=== PATIENT | female | born 1960 | race Caucasian/White ===

== ENCOUNTER 2016-07-18 23:42 | Emergency (ER) | payer OTHER ==
[~2016-07-18] VITALS: Ht 167.6 cm; Wt 76.0 kg
[2016-07-18 23:47] VITALS: Ht 167.6 cm; Wt 76.0 kg
--- NOTE | 2016-07-19 00:35 | ERA ---
ER Documentation Chief Complaint Date/Time DATE: 07/19/16 TIME: 00:34 Chief Complaint RUQ abd pain x 3 days HPI The patient is a 56-year-old female, presenting to the ER because of intermittent right upper quadrant abdominal pain for 3 days, was seen at the clinic 3 days ago and discharged with pain medication. He has similar symptoms previously, denies fever, chills, neck pain, chest pain. He complains of nausea and vomited 3 mostly mucus, denies diarrhea, constipation, dysuria. She does not smoke or drink Past medical history: None Past surgical history: Tubal ligation, hemorrhoidectomy ROS All systems reviewed and are negative except as per history of present illness. Medications Home Meds Active Scripts Tramadol HCl (Tramadol HCl) 50 Mg Tablet, 50 MG PO Q6H Y for PAIN, #10 TAB Prov:JAYDEN SHAW MD 07/19/16 Allergies Allergies: Coded Allergies: tioconazole (Verified Allergy, Mild, 01/09/14) Tetracyclines (Verified Allergy, Unknown, 01/09/14) codeine (Verified Allergy, Unknown, 01/09/14) hydrocodone (Verified Allergy, Unknown, 01/09/14) VOMIT PMhx/Soc History of Surgery: No Anesthesia Reaction: No Hx Neurological Disorder: No Hx Respiratory Disorders: No Hx Cardiac Disorders: No Hx Psychiatric Problems: No Hx Miscellaneous Medical Probl: No Hx Alcohol Use: No Hx Substance Use: No Hx Tobacco Use: No Physical Exam Vitals Vital Signs Date Time Temp Pulse Resp B/P Pulse Ox O2 Delivery O2 Flow Rate FiO2 07/19/16 01:41 98.1 64 20 111/72 98 Room Air 07/18/16 23:47 98.3 68 20 128/87 98 Physical Exam Const: No acute distress. Head: Atraumatic. Eyes: Normal Conjunctiva. ENT: Normal External Ears, Nose and Mouth. Neck: Full range of motion. No meningismus. Resp: Clear to auscultation bilaterally. Cardio: Regular rate and rhythm. Abd: Soft, non distended, normal bowel sounds, moderate right upper quadrant tenderness, no right lower quadrant, epigastric, CVA tenderness Skin: No petechiae or rashes. Back: No midline or flank tenderness. Ext: No cyanosis, or edema. Neur: Awake and alert. No focal deficit Psych: Normal Mood and Affect. Result Diagram: 07/19/160 07/19/16 0040 Results 24 hrs Laboratory Tests Test 07/19/16 00:40 07/19/16 01:02 White Blood Count 8.210^3/ul Red Blood Count 4.6010^6/ul Hemoglobin 14.6g/dl Hematocrit 42.9% Mean Corpuscular Volume 93.3fl Mean Corpuscular Hemoglobin 31.7pg Mean Corpuscular Hemoglobin Concent 34.0g/dl Red Cell Distribution Width 13.5% Platelet Count 12556^3/UL Mean Platelet Volume 11.8fl Neutrophils % 58.7% Lymphocytes % 33.9% Monocytes % 5.3% Eosinophils % 1.8% Basophils % 0.1% Nucleated Red Blood Cells % 0.0/100WBC Neutrophils # 4.810^3/ul Lymphocytes # 2.810^3/ul Monocytes # 0.410^3/ul Eosinophils # 0.210^3/ul Basophils # 0.010^3/ul Nucleated Red Blood Cells # 0.010^3/ul Sodium Level 145mmol/L Potassium Level 3.7mmol/L Chloride Level 109mmol/L Carbon Dioxide Level 25mmol/L Anion Gap 15 Blood Urea Nitrogen 22mg/dl Creatinine 0.85mg/dl Glucose Level 100mg/dl Calcium Level 10.4mg/dl Total Bilirubin 0.2mg/dl Direct Bilirubin 0.00mg/dl Indirect Bilirubin 0.2mg/dl Aspartate Amino Transf (AST/SGOT) 17IU/L Alanine Aminotransferase (ALT/SGPT) 33IU/L Alkaline Phosphatase 101IU/L Total Protein 7.5g/dl Albumin 4.8g/dl Globulin 2.70g/dl Albumin/Globulin Ratio 1.77 Lipase 253U/L Bedside Urine pH (LAB) 7.0 Bedside Urine Protein (LAB) Negative Bedside Urine Glucose (UA) Negative Bedside Urine Ketones (LAB) Negative Bedside Urine Blood Trace-intact Bedside Urine Nitrite (LAB) Negative Bedside Urine Leukocyte Esterase (L 1+ Current Medications Medications (Trade) Dose Ordered Sig/Marlys Route PRN Reason Start Time Stop Time Status Last Admin Dose Admin Sodium Chloride (NS) 1,000 ml @ 1,000 mls/hr Q1H STAT IV 07/19/16 00:38 07/19/16 01:37 DC 07/19/16 00:46 Morphine Sulfate (morphine) 4 mg ONCE STAT IV 07/19/16 00:38 07/19/16 00:40 DC 07/19/16 00:46 Ondansetron HCl (Zofran Inj) 4 mg ONCE STAT IV 07/19/16 00:38 07/19/16 00:40 DC 07/19/16 00:46 Hydromorphone HCl (Dilaudid) 1 mg ONCE STAT IV 07/19/16 01:22 07/19/16 01:23 DC 07/19/16 01:27 Ondansetron HCl (Zofran Inj) 4 mg ONCE STAT IV 07/19/16 01:22 07/19/16 01:23 DC 07/19/16 01:26 Procedures/[place] [id number] Radiology Main Line: [phone] DIAGNOSTIC IMAGING REPORT Patient: LES FIELDS : 1960 Age: 56 Sex: F MR #: [id number] DOS: 07/19/16 0038 Ordering MD: JAYDEN SHAW MD Location: E/R Room/Bed: PROCEDURE: ULTRASOUND LIMITED ABDOMEN CLINICAL INDICATION: 56-year-old female with abdominal pain. TECHNIQUE: Multiple sonographic of the right upper quadrant of the abdomen were obtained. The images were reviewed on a PACS workstation. COMPARISON: None. FINDINGS: The proximal inferior vena cava and aorta are unremarkable. The pancreas is partially visualized and is otherwise without focal abnormal echogenicity. The liver displays diffuse increased echogenicity consistent with fatty infiltration. The liver measures 21.1 cm in length. No evidence of intrahepatic biliary ductal dilatation is seen. The portal and hepatic veins are unremarkable. The gallbladder contains multiple small dependent shadowing stones. The gallbladder wall is mildly prominent measuring 3.2 mm. No pericholecystic fluid is seen. The common bile duct measures 3.7 mm and is not dilated. The right kidney displays normal echogenicity. The right kidney measures 10.7 cm in length. No caliectasis or hydronephrosis is seen. No free fluid is seen. IMPRESSION: 1. Hepatomegaly with diffuse fatty infiltration. 2. Cholelithiasis with mildly prominent gallbladder wall. .Javid Johnson MD, MD Date Time Electronically viewed and signed by .Javid Johnson MD, MD on 07/19/2016 02:14 .M/ CC: JAYDEN SHAW MD MEDICAL MAKING DECISION: The patient is a 56-year-old female, presenting with acute biliary colic, acute cystitis. She was treated with morphine 4 mg IV, Dilaudid 1 mg IV for pain, Zofran 4 mg IV 2 for nausea and 1 L normal saline for clinical dehydration with good response. The differential diagnoses considered include but are not limited to cholelithiasis, cholecystitis, cystitis, pancreatitis, hepatitis, gastritis, peptic ulcer disease, gastric ulcer, appendicitis, diverticulitis, cholangitis, choledocholithiasis, partial small bowel obstruction. Departure Diagnosis: Primary Impression: Biliary colic Additional Impression: Cystitis Condition: Good Comments She was discharged with Ultram and Bactrim DS I discussed the findings with the patient. I advised the patient to follow-up with the on-call general surgeon Dr. Burnham in about 1-2 days, sooner if needed and return if any concern. The patient's blood pressure was elevated (>120/80) but appears stable without evidence of hypertension emergency or urgency. The patient was counseled about the risks of hypertension and urged to pursue outpatient monitoring and therapy within a week with their primary care physician. JAYDEN SHAW MD Jul 19, 2016 00:34
[2016-07-19] MEDS ORDERED: morphine 4 MG/ML VIAL IV STA (00:38)
[2016-07-19] MEDS ORDERED: SOD CHLORIDE 0.9% 1,000 ML IV STA (00:38)
[2016-07-19] MEDS ORDERED: ONDANSETRON 4 MG INJ IV STA ×2 (00:38→01:22)
[2016-07-19 00:59] LABS: URINE BLOOD (Dip) POC Trace-intact (NEGATIVE)
[2016-07-19 01:01] LABS: ADD SCAN DIFF NO
[2016-07-19 01:04] LABS: BASOPHILS % 0.1 % (0.0-2.0); EOSINOPHILS # 0.2 10^3/ul (0.0-0.5); EOSINOPHILS % 1.8 % (0.0-7.0); HEMATOCRIT 42.9 % (37.0-47.0); HEMOGLOBIN 14.6 g/dl (12.0-16.0); LYMPHOCYTES # 2.8 10^3/ul (0.8-2.9); LYMPHOCYTES % 33.9 % (15.0-51.0); MEAN CORPUSCULAR HEMOGLOBIN 31.7 pg (29.0-33.0); MEAN CORPUSCULAR VOLUME 93.3 fl (82.0-101.0); MEAN PLATELET VOLUME 11.8 fl (7.4-10.4); MONOCYTE # 0.4 10^3/ul (0.3-0.9); MONOCYTES % 5.3 % (0.0-11.0); NEUTROPHIL # 4.8 10^3/ul (1.6-7.5); NEUTROPHILS % 58.7 % (39.0-77.0); PLATELET COUNT 215 10^3/UL (140-415); RED CELL DISTRIBUTION WIDTH 13.5 % (11.5-14.5); WHITE BLOOD COUNT 8.2 10^3/ul (4.8-10.8)
[2016-07-19] MEDS ORDERED: HYDROmorphONE 1 MG/ML SYG IV STA (01:22)
[2016-07-19 01:32] LABS: ALBUMIN 4.8 g/dl (3.3-4.9); ALBUMIN/GLOBULIN RATIO 1.77; BILIRUBIN,INDIRECT 0.2 mg/dl (0-1.1); BILIRUBIN,TOTAL 0.2 mg/dl (0.2-1.3); CALCIUM 10.4 mg/dl (8.4-10.2); CREATININE 0.85 mg/dl (0.44-1.00); POTASSIUM 3.7 mmol/L (3.5-5.1); TOTAL PROTEIN 7.5 g/dl (6.1-8.1)
[2016-07-19 01:41] VITALS: BP 111/72; PULSE 64; RESP 20; TEMP 98.1
--- NOTE | 2016-07-19 02:14 | RADRPT ---
PROCEDURE: ULTRASOUND LIMITED ABDOMEN CLINICAL INDICATION: 56-year-old female with abdominal pain. TECHNIQUE: Multiple sonographic of the right upper quadrant of the abdomen were obtained. The imag es were reviewed on a PACS workstation. COMPARISON: None. FINDINGS: The proximal inferior vena cava and aorta are unremarkable. The pancreas is partially visualized and is otherwise without focal abnormal echogenicity. The liver displays diffuse increased echogenicity consistent with fatty infiltration. The liver sebastian ures 21.1 cm in length. No evidence of intrahepatic biliary ductal dilatation is seen. The portal a nd hepatic veins are unremarkable. The gallbladder contains multiple small dependent shadowing stones. The gallbladder wall is mildly prominent measuring 3.2 mm. No pericholecystic fluid is seen. The common bile duct measures 3.7 mm a nd is not dilated. The right kidney displays normal echogenicity. The right kidney measures 10.7 cm in length. No calie ctasis or hydronephrosis is seen. No free fluid is seen. IMPRESSION: 1. Hepatomegaly with diffuse fatty infiltration. 2. Cholelithiasis with mildly prominent gallbladder wall. .Javid Johnson MD, MD Date Time Electronically viewed and signed by .Javid Johnson MD, on 07/19/2016 02:14 .M/
[2016-07-19] MEDS ORDERED: TRAM50TA2 PO (03:32)
== END 2016-07-19 03:51 | disposition home or self-care (01) ==
LOC: E/R 23:42
DX: K80.50 Calculus of bile duct without cholangitis or cholecystitis without obstruction (principal); N30.90 Cystitis, unspecified without hematuria; R11.2 Nausea with vomiting, unspecified
CPT/HCPCS: 36415; 76705; 80053; 81003; 83690; 85025; 96374; 96375; 96376; J1170; J2270; J2405; J7030; Z7502

== ENCOUNTER 2017-02-05 17:01 | Emergency (ER) | END 2017-02-05 19:06 | disposition home or self-care (01) ==

== ENCOUNTER 2017-09-05 12:03 | Emergency (ER) | END 2017-09-05 14:29 | disposition home or self-care (01) ==

== ENCOUNTER 2018-07-12 14:35 | Emergency (ER) | payer MEDICAID, OTHER ==
[~2018-07-12] VITALS: Wt 80.0 kg
[~2018-07-12 14:35] MED LIST: CETI10CA PO; DICY10CA40 PO; GUAI120S25 PO; IBUP-1542 PO; NITR-58 PO; TRAM50TA2 PO
[2018-07-12 14:36] VITALS: BP 127/80; PULSE 74; RESP 18
--- NOTE | 2018-07-12 15:21 | ERD ---
ER Documentation Chief Complaint Chief Complaint LEFT EYE REDNESS HPI 58-year-old female presenting with sub-conjunctive hemorrhage to the left eye. Patient denies any trauma patient states that the symptoms first began 3 weeks ago and has been just getting worse. Patient states she feels a pulsation that started today but denies any blurry vision or headaches. Patient denies any floaters or loss of vision in the eye. Patient has not taken any medication for this issue and has not seen any provider for this issue. Patient denies taking any aspirin warfarin nightly Coumadin or any blood thinning medication. Patient denies taking any medications at all and states her only past medical history is tubal ligation, hemorrhoid removal, and gallbladder removal. ROS All systems reviewed and are negative except as per history of present illness. Medications Home Meds Active Scripts Polymyxin B Sulfate-TMP* (Polymyxin B-TMP Eye Drops*) 10 Ml Drops, 1 DROP LEFT EYE QID for 7 Days, EA Prov:MARICRUZ DENG PA-C 07/12/18 Acetaminophen* (Tylenol*) 325 Mg Tablet, 1 TAB PO Q6 PRN for PAIN AND OR ELEVATED TEMP, #20 TAB Prov:MARICRUZ DENG PA-C 07/12/18 Ibuprofen* (Ibuprofen*) 600 Mg Tablet, 600 MG PO Q6H PRN for PRN, #30 TAB Prov:JAYDEN CAMACHO DO 09/05/17 Nitrofurantoin Monohyd Macrocr* (Macrobid*) 100 Mg Capsr, 100 MG PO BID for 14 Days, CAP Prov:JAYDEN CAMACHO DO 09/05/17 Dicyclomine HCl (Dicyclomine HCl) 10 Mg Capsule, 20 MG PO QID, #15 CAP Prov:DIANA CHARLES NP 02/05/17 Ibuprofen* (Motrin*) 600 Mg Tab, 600 MG PO Q6H PRN for PAIN AND OR ELEVATED TEMP, #30 TAB Prov:DIANA CHARLES NP 02/05/17 Cetirizine Hcl* (Zyrtec*) 10 Mg Capsule, 10 MG PO DAILY, #30 TAB.CHEW Prov:DIANA CHARLES NP 02/05/17 Aoywlrkeojc-P-Yqvbyqcjkl Hb* (Guaifenesin* DM Syrup) 120 Ml Syrup, 10 ML PO Q4H PRN for COUGH, #120 ML Prov:DIANA CHARLES MANDEEP IzaDory RAUSCH 02/05/17 Tramadol HCl (Tramadol HCl) 50 Mg Tablet, 50 MG PO Q6H PRN for PAIN, #10 TAB Prov:JAYDEN SHAW MD 07/19/16 Allergies Allergies: Coded Allergies: tioconazole (Verified Allergy, Mild, 09/05/17) Tetracyclines (Verified Allergy, Unknown, 09/05/17) codeine (Verified Allergy, Unknown, 09/05/17) hydrocodone (Verified Allergy, Unknown, 09/05/17) VOMIT PMhx/Soc Medical and Surgical Hx: pt denies Medical Hx History of Surgery: Yes (Patient has history of tubal ligation, hemorrhoid removal, gallbladder removal) Anesthesia Reaction: No Hx Neurological Disorder: No Hx Respiratory Disorders: No Hx Cardiac Disorders: No Hx Psychiatric Problems: No Hx Miscellaneous Medical Probl: No Hx Alcohol Use: No Hx Substance Use: No Hx Tobacco Use: No Smoking Status: Never smoker FmHx Family History: No diabetes, No coronary disease, No other Physical Exam Vitals Vital Signs Date Temp Pulse Resp B/P (MAP) Pulse Ox O2 O2 Flow FiO2 Time Delivery Rate 07/12/18 98.1 74 18 127/80 99 14:36 (96) Physical Exam GENERAL: The patient is well-appearing, well-nourished, in no acute distress HEENT: Patient's left eye presents with sub-conjunctival hemorrhage on the medial aspect. Patient denies trauma, Pupils equal, round, and reactive to light. There is no scleral icterus. Tympanic membranes clear bilaterally. Oropharynx clear. No nystagmus or photophobia. CHEST: Clear to auscultation bilaterally. There are no rales, wheezes or rhonchi. HEART: Regular rate and rhythm. No murmurs, clicks, rubs or gallops. Visual acuity Right eye 20/40 Left eye 20/30 Results 24 hrs Current Medications Medications Dose Sig/Marlys Start Time Status Last (Trade) Ordered Route PRN Stop Time Admin Dose Reason Admin Fluorescein 1 strip ONCE ONCE 07/12/18 DC Sodium LEFT EYE 15:30 07/12/18 (Uzluf-B-Gwkt 15:31 p) Tetracaine 1 drop ONCE ONCE 07/12/18 DC HCl LEFT EYE 15:30 07/12/18 (Tetracaine 15:31 0.5% Steri-Unit Kirsten) Procedures/MDM ED course: Visual acuity right eye was 20/40 left eye was 20/30 Tetracaine Greco lamp examination The patient was stable throughout the ED course. The patient and/or family informed of laboratory and diagnostic imaging results throughout the ED course. Medications given in ER: Tetracaine Patient tolerated medication well with no adverse reactions. Patient reported improvement in pain. Medical decision makin-year-old female presented to ER for sub-conjunctival hemorrhage in left eye. Patient states symptoms began about 3 weeks ago. Patient denies any blurry vision, presence of floaters, loss of vision, nausea vomiting headache. Patient's visual acuity test showed no concerns for loss of vision in the affected eye. Patient actually had better vision in her left eye than her right. Greco lamp examination was done in the ER. No signs of corneal ulcer or abrasions. Patient had no pain on palpation to the eye region. At this time I have low suspicion corneal abrasion, corneal ulcer, retained eye foreign body, glaucoma, periorbital cellulitis, orbital cellulitis, hordeolum, dacrocystitis, globe rupture. The patient was advised to follow-up with her primary care provider within 1 to 2 days regarding this visit. Patient was advised if symptoms worsen or if she experiences loss of vision increased pain headache nausea vomiting swelling to return to ER immediately. Patient is being discharged with ophthalmic drops and Tylenol. Patient's questions were answered upon discharge. Patient is in agreement to the treatment plan and will be following up with her primary care provider in 1 to 2 days. Prescription for home: Acetaminophen Polymyxin ophthalmic Discharge: At this time, patient is stable for discharge and outpatient management. I have instructed the patient to follow-up with his\her primary care physician in 1 to 2 days. I have discussed with the patient the possibility of needing to see a specialist for further work-up and imaging studies if symptoms persist. I have instructed the patient to promptly return to the ER for any new or worsening symptoms including increased pain, fever, nausea, vomiting, weakness or LOC. The patient and\or family expressed understanding of and agreement with this plan. All questions were answered. Home care instructions were provided. Disclaimer: Inadvertent spelling and grammatical errors are likely due to EHR\dictation software use and do not reflect on the overall quality of patient care. Also, please note that the electronic time recorded on the note does not necessarily reflect the actual time of the patient encounter. Ophthalmologic Assessment: Patient's ocular symptoms have stabilized while they have been evaluated in the department and are appropriate for outpatient work up. No evidence of ruptured globe, retinal detachment, acute angle closure glaucoma, or deep space infection. Plan for 24 hour ophthalmologic follow up. Departure Diagnosis: Primary Impression: Subconjunctival hemorrhage of left eye Condition: Stable Referrals: [facility] Additional Instructions: Return to the ER if symptoms worse otherwise follow-up with your primary care provider within 1 to 2 days regarding this visit MARICRUZ DENG PA-C Jul 12, 2018 15:21
[2018-07-12] MEDS ORDERED: TETRACAINE 0.5% 4 ML OPH LEFT EYE ONE (15:30)
[2018-07-12] MEDS ORDERED: FLUORESCEIN STRIP LEFT EYE ONE (15:30)
[2018-07-12] MEDS ORDERED: ACET325T33 PO (16:07)
[2018-07-12] MEDS ORDERED: POLY10DR19 LEFT EYE (16:07)
== END 2018-07-12 16:26 | disposition home or self-care (01) ==
LOC: FTE 14:35
DX: H11.32 Conjunctival hemorrhage, left eye (principal)
CPT/HCPCS: Z7502; Z7610; 99283